=== PATIENT | male | born 1940 | race American Indian/Alaskan Native ===

== ENCOUNTER 2017-01-04 06:34 | Day surgery (SDC) | payer MEDICARE, MEDICAID ==
[~2017-01-04 06:34] MED LIST: Midazolam 1 MG/ML 2 ML SDV ONE; fentaNYL 100 MCG/2 ML SDV ONE
[2017-01-04] MEDS ORDERED: Midazolam 1 MG/ML 2 ML SDV IV ONE ×3 (06:35→07:31)
[2017-01-04] MEDS ORDERED: fentaNYL 100 MCG/2 ML SDV IV ONE ×2 (06:35→07:28)
[2017-01-04] MEDS ORDERED: Dextrose 5%-0.45% NaCl 1,000 ML IV SCH (07:00)
[2017-01-04] MEDS ORDERED: Sodium Chloride 0.9% 10 ML Syringe FLUSH PRN (07:00)
--- NOTE | 2017-01-04 08:25 | OR ---
DATE: 01/04/2017 PROCEDURES: Esophagogastroduodenoscopy, argon plasma coagulation therapy, and multiple pinch biopsies. INSTRUMENT USED: GIF-Q180 Olympus video panendoscope. PREMEDICATIONS: No oral topical anesthesia used. Fentanyl 100 mcg intravenous, Versed 1.5 mg intravenous. Nasal O2 canula. The procedure was done under pulse oximetry, BP recording, and cardiac monitoring. INDICATION: The patient with longstanding heartburn unexplained and not responsive to medical measures, on acid suppressants. DESCRIPTION OF PROCEDURE: Esophagogastroduodenoscopy is performed for detection of any active erosive lesions, Courtney esophagus, and malignancy also under consideration. H. pylori status to be determined, endoscopic hemostasis therapy if needed. The scope was passed with ease. Adequate visualization of the esophagus was made from proximal to distal areas. No upper esophageal lesions identified. No distal esophageal stricture. No uphill or downhill esophageal varices. No Laxmi-Mendoza tear. No evidence of erosive esophagitis by [place] criteria. No esophageal polyp or tumor mass identified. Small sliding hiatal hernia was noted. 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 No proximal gastric varices noted. Gastric fundus examination by retroflexion showed no polypoid lesions. No gastric ulcer, malignant mass, or vascular ectasia identified. There was some deformity near the prepyloric area. Multiple pinch biopsies were taken from the gastric antrum and proximal body and sent for PyloriTek test for H. pylori, and if negative in an hour, tissues to be sent for histopathology. Duodenal bulb showed small angiodysplastic area without bleeding from it. APC therapy was given. Visualized second part of the duodenum was unremarkable. Photographs were taken of the duodenal bulb before and after APC therapy. Photographs were also taken of the gastric antrum, fundus, and distal esophagus. No bleeding was noted from any of the visualized areas at the completion of examination. IMPRESSION: 1. Small sliding hiatal hernia. 2. Robert erosions. 3. Duodenal angiodysplasia. The patient tolerated the procedure well. [facility] /[id number]
[2017-01-04 09:26] VITALS: BP 140/63
== END 2017-01-04 09:40 | disposition home or self-care (01) ==
LOC: DL.ENDO 06:34
PROVIDERS: ATTEND Internal Medicine Gastroenterology
DX: K44.9 Diaphragmatic hernia without obstruction or gangrene (principal); K31.819 Angiodysplasia of stomach and duodenum without bleeding; K25.9 Gastric ulcer, unspecified as acute or chronic, without hemorrhage or perforation; E11.22 Type 2 diabetes mellitus with diabetic chronic kidney disease; I12.9 Hypertensive chronic kidney disease with stage 1 through stage 4 chronic kidney disease, or unspecified chronic kidney disease; N18.9 Chronic kidney disease, unspecified; E55.9 Vitamin D deficiency, unspecified; Z95.1 Presence of aortocoronary bypass graft; J44.9 Chronic obstructive pulmonary disease, unspecified; E78.5 Hyperlipidemia, unspecified; Z98.890 Other specified postprocedural states; F17.210 Nicotine dependence, cigarettes, uncomplicated; Z88.1 Allergy status to other antibiotic agents; Z88.8 Allergy status to other drugs, medicaments and biological substances
CPT/HCPCS: 43239; 87077; J7042; J2250; J3010

== ENCOUNTER 2017-05-10 06:18 | Day surgery (SDC) | payer MEDICARE, MEDICAID ==
[~2017-05-10 06:18] MED LIST changes: +Dextrose 5%-0.45% NaCl 1,000 ML IV SCH; +Sodium Chloride 0.9% 10 ML Syringe FLUSH PRN
[2017-05-10] MEDS ORDERED: fentaNYL 100 MCG/2 ML SDV IV ONE ×3 (06:19→07:30)
[2017-05-10] MEDS ORDERED: Midazolam 1 MG/ML 2 ML SDV IV ONE ×5 (06:19→07:38)
--- NOTE | 2017-05-10 08:19 | OR ---
DATE: 05/10/2017 PROCEDURE: Total colonoscopy and multiple cold snare polypectomies. INSTRUMENT USED: CF-H180AL Olympus video colonoscope. PREMEDICATIONS: Fentanyl 100 mcg intravenous, Versed 3 mg intravenous. Nasal O2 cannula. The procedure was done under pulse oximetry, BP recording, and monitoring analyst. INDICATION: Screening colonoscopic examination is done for detection of any polypoid lesions and removal, endoscopic hemostasis therapy if needed. DESCRIPTION OF PROCEDURE: Initial rectal exam was unremarkable. Rigid anoscopy was normal. The colonoscope was passed with ease. Few scattered diverticula were noted in the distal left colon along with some deformity. There was large amount of mostly liquid and some solid fecal material that had to be aspirated. The scope was passed with ease up to the ileocecal area, photographs were taken of the cecum showing multiple 3 mm sized benign-appearing polyps 3 in number. Photographs were taken, cold snare polypectomies were done, the tissues were retrieved and sent for histopathology. In the proximal ascending colon, another 3 mm sized benign-appearing polyp was noted, cold snare polypectomy was done, the tissue was retrieved and sent for histopathology. No bleeding was noted from any of the visualized areas at the commencement of the examination. No stricture. No vascular ectasia. No large isolated ulcerations seen. No evidence of diffuse inflammatory bowel disease in the form of friability, contact bleeding, or ulcerations. Probing the proximal sides of folds and flexures, using adequate distention and clearing up the stool material withdrawal of the scope was made, cecum to rectum time over 6 minutes. No bleeding was noted from any of the visualized areas at the completion of examination. IMPRESSION: 1. Colonic diverticulosis. 2. Multiple diminutive colonic polyps. The patient tolerated the procedure well. [facility] /[id number]
[2017-05-10 09:55] VITALS: BP 138/59
== END 2017-05-10 10:10 | disposition home or self-care (01) ==
LOC: DL.ENDO 06:18
PROVIDERS: ATTEND Internal Medicine Gastroenterology
DX: Z12.11 Encounter for screening for malignant neoplasm of colon (principal); D12.0 Benign neoplasm of cecum; D12.2 Benign neoplasm of ascending colon; K57.30 Diverticulosis of large intestine without perforation or abscess without bleeding; Z88.0 Allergy status to penicillin; Z88.1 Allergy status to other antibiotic agents; Z88.8 Allergy status to other drugs, medicaments and biological substances
CPT/HCPCS: 45385; 82962; J2250; J3010; J7042; 88305

== ENCOUNTER 2021-05-19 09:03 | Inpatient (IN) | payer MEDICARE, MEDICAID ==
[2021-05-19] MEDS ORDERED: Sodium Chloride 0.9% 10 ML Syringe FLUSH PRN (09:47)
[2021-05-19] MEDS ORDERED: Furosemide 40 MG/4 ML VIAL IV ONE (10:20)
[2021-05-19] MEDS ORDERED: Acetaminophen 325 MG Tab PO ONE (10:20)
[2021-05-19] MEDS ORDERED: Furosemide 40 MG/4 ML VIAL IVPUSH ONE ×3 (10:25→18:13)
[2021-05-19 10:51] LABS: CORONAVIRUS COVID-19 NAA NEGATIVE (NEGATIVE)
[2021-05-19] MEDS ORDERED: Sodium Polystyrene Sulfonate 15 GM/60 ML Susp 60 ML Bot PO ONE (11:14)
[2021-05-19 11:26] LABS: ANION GAP 9.8 mEq/L (7-13)
[2021-05-19] MEDS ORDERED: Ondansetron 4 MG/2 ML SDV IVPUSH PRN (14:22)
[2021-05-19] MEDS ORDERED: Azithromycin 500 MG in Sodium Chloride 0.9% 250 ML IV ONE (14:42)
[2021-05-19] MEDS ORDERED: cefTRIAXone 1 GM Vial IM SCH (15:00)
[2021-05-19] MEDS: Albuterol 0.021% 0.63 MG/3 ML Neb Soln NEB SCH ×2 (18:26)
[2021-05-19] MEDS: Budesonide 0.5 MG/2 ML Neb Susp NEB SCH (18:27)
[2021-05-19] MEDS: methylPREDNISolone Sodium Succinate 40 MG/1 ML SDV IVPUSH SCH ×2 (18:38→21:09)
[2021-05-19] MEDS: Pantoprazole 40 MG Tab.CR PO SCH (21:08)
[2021-05-19] MEDS: Levofloxacin/Dextrose 5%-Water 500 MG in Premix Bag 1 BAG IV SCH (21:09)
[2021-05-20] MEDS ORDERED: Glucagon,Human Recombinant 1 MG Vial IM PRN (00:20)
[2021-05-20] MEDS ORDERED: 50% Dextrose in Water 50 ML Syringe IVPUSH PRN (00:20)
[2021-05-20] MEDS: Carvedilol 25 MG Tab PO SCH ×3 (00:40→20:59)
[2021-05-20] MEDS: Albuterol 0.021% 0.63 MG/3 ML Neb Soln NEB SCH ×6 (00:40→18:18)
[2021-05-20] MEDS ORDERED: Furosemide 40 MG/4 ML VIAL IVPUSH ONE (02:18)
[2021-05-20] MEDS: methylPREDNISolone Sodium Succinate 40 MG/1 ML SDV IVPUSH SCH ×3 (05:17→21:04)
[2021-05-20 06:02] LABS: ANION GAP 19.4 mEq/L (7-13)
[2021-05-20] MEDS: Calcitriol 0.25 MCG Cap PO SCH (08:24)
[2021-05-20] MEDS: Clopidogrel 75 MG Tab PO SCH (08:25)
[2021-05-20] MEDS: Losartan 50 MG Tab PO SCH (08:25)
[2021-05-20] MEDS: Furosemide 100 MG/10 ML SDV IVPUSH SCH ×2 (08:30→15:11)
[2021-05-20] MEDS: Insulin Lispro 100 Units/ML 3 ML Vial SUBCUT SCH ×2 (08:40→17:23)
[2021-05-20] MEDS: Insulin Glarg,Human.Rec.Analog 100 Unit/ML SUBCUT SCH ×2 (08:42→21:09)
[2021-05-20] MEDS ORDERED: Chlorthalidone 25 MG Tab PO SCH (09:00)
[2021-05-20] MEDS ORDERED: Enoxaparin 30 MG/0.3 ML Syringe SUBCUT SCH (09:00)
[2021-05-20] MEDS ORDERED: Omeprazole 20 MG Cap.CR PO SCH (09:00)
[2021-05-20] MEDS: Budesonide 0.5 MG/2 ML Neb Susp NEB SCH ×2 (09:21→18:18)
[2021-05-20] MEDS ORDERED: Insulin Lispro 100 Units/ML 3 ML Vial SUBCUT SCH (12:00)
[2021-05-20] MEDS: Heparin Sodium 5,000 Units/ML Vial SUBCUT SCH ×2 (15:08→21:03)
[2021-05-20] MEDS: Pantoprazole 40 MG Tab.CR PO SCH (21:00)
[2021-05-20] MEDS: DULoxetine 30 MG Cap PO SCH (21:00)
[2021-05-20] MEDS: Gabapentin 300 MG Cap PO SCH (21:00)
[2021-05-20] MEDS: Pravastatin 20 MG Tab PO SCH (21:00)
[2021-05-20] MEDS: Tamsulosin 0.4 MG Cap.ER PO SCH (21:00)
[2021-05-20] MEDS: Acetaminophen 325 MG Tab PO PRN (21:08)
[2021-05-21] MEDS: Albuterol 0.021% 0.63 MG/3 ML Neb Soln NEB SCH ×6 (03:57→18:40)
[2021-05-21 05:51] LABS: ANION GAP 14.6 mEq/L (7-13)
[2021-05-21] MEDS: methylPREDNISolone Sodium Succinate 40 MG/1 ML SDV IVPUSH SCH ×2 (06:09→20:14)
[2021-05-21] MEDS: Heparin Sodium 5,000 Units/ML Vial SUBCUT SCH ×3 (06:09→23:50)
[2021-05-21] MEDS: Budesonide 0.5 MG/2 ML Neb Susp NEB SCH ×2 (08:08→18:40)
[2021-05-21] MEDS ORDERED: 50% Dextrose in Water 50 ML Syringe IVPUSH PRN (09:19)
[2021-05-21] MEDS: Insulin Lispro 100 Units/ML 3 ML Vial SUBCUT SCH ×4 (09:24→21:15)
[2021-05-21] MEDS: Carvedilol 25 MG Tab PO SCH ×2 (09:40→20:14)
[2021-05-21] MEDS: Clopidogrel 75 MG Tab PO SCH (09:40)
[2021-05-21] MEDS: Losartan 50 MG Tab PO SCH (09:41)
[2021-05-21] MEDS: Insulin Glarg,Human.Rec.Analog 100 Unit/ML SUBCUT SCH ×2 (09:43→21:16)
[2021-05-21] MEDS: Furosemide 100 MG/10 ML SDV IVPUSH SCH (09:54)
[2021-05-21] MEDS: Furosemide 40 MG Tab PO SCH (14:30)
[2021-05-21] MEDS: DULoxetine 30 MG Cap PO SCH (20:14)
[2021-05-21] MEDS: Levofloxacin/Dextrose 5%-Water 500 MG in Premix Bag 1 BAG IV SCH (20:14)
[2021-05-21] MEDS: Tamsulosin 0.4 MG Cap.ER PO SCH (20:15)
[2021-05-21] MEDS: Pravastatin 20 MG Tab PO SCH (20:15)
[2021-05-21] MEDS: Gabapentin 300 MG Cap PO SCH (20:15)
[2021-05-21] MEDS: Pantoprazole 40 MG Tab.CR PO SCH (20:15)
[2021-05-22] MEDS: Albuterol 0.021% 0.63 MG/3 ML Neb Soln NEB SCH ×4 (00:16→13:54)
[2021-05-22] MEDS: Heparin Sodium 5,000 Units/ML Vial SUBCUT SCH ×3 (06:06→21:19)
[2021-05-22] MEDS: Acetaminophen 325 MG Tab PO PRN ×2 (06:15→14:45)
[2021-05-22] MEDS: Budesonide 0.5 MG/2 ML Neb Susp NEB SCH ×2 (08:50→22:23)
[2021-05-22] MEDS: Furosemide 40 MG Tab PO SCH ×2 (09:15→14:45)
[2021-05-22] MEDS: Losartan 50 MG Tab PO SCH (09:15)
[2021-05-22] MEDS: Insulin Lispro 100 Units/ML 3 ML Vial SUBCUT SCH ×4 (09:15→21:25)
[2021-05-22] MEDS: Carvedilol 25 MG Tab PO SCH ×2 (09:15→21:24)
[2021-05-22] MEDS: Insulin Glarg,Human.Rec.Analog 100 Unit/ML SUBCUT SCH ×2 (09:15→21:26)
[2021-05-22] MEDS: Calcitriol 0.25 MCG Cap PO SCH (09:15)
[2021-05-22] MEDS: Clopidogrel 75 MG Tab PO SCH (09:15)
[2021-05-22] MEDS: Azithromycin 250 MG Tab PO SCH (09:15)
[2021-05-22] MEDS: methylPREDNISolone Sodium Succinate 40 MG/1 ML SDV IVPUSH SCH (09:51)
[2021-05-22] MEDS: Pravastatin 20 MG Tab PO SCH (21:17)
[2021-05-22] MEDS: Pantoprazole 40 MG Tab.CR PO SCH (21:17)
[2021-05-22] MEDS: Tamsulosin 0.4 MG Cap.ER PO SCH (21:18)
[2021-05-22] MEDS: Gabapentin 300 MG Cap PO SCH (21:18)
[2021-05-22] MEDS: DULoxetine 30 MG Cap PO SCH (21:18)
[2021-05-22] MEDS: Albuterol 0.083% 2.5 MG/3 ML Neb Soln INH SCH ×2 (22:22→22:23)
[2021-05-23] MEDS: Acetaminophen 325 MG Tab PO PRN ×2 (01:13→08:39)
[2021-05-23] MEDS: Heparin Sodium 5,000 Units/ML Vial SUBCUT SCH ×2 (05:57→13:18)
[2021-05-23] MEDS: Albuterol 0.083% 2.5 MG/3 ML Neb Soln INH SCH ×2 (07:37→13:24)
[2021-05-23] MEDS: Budesonide 0.5 MG/2 ML Neb Susp NEB SCH (07:37)
[2021-05-23] MEDS ORDERED: predniSONE 20 MG Tab PO SCH (08:00)
[2021-05-23] MEDS: Insulin Lispro 100 Units/ML 3 ML Vial SUBCUT SCH ×2 (08:08→12:24)
[2021-05-23] MEDS: Insulin Glarg,Human.Rec.Analog 100 Unit/ML SUBCUT SCH (08:35)
[2021-05-23] MEDS: Carvedilol 25 MG Tab PO SCH (08:38)
[2021-05-23] MEDS: Azithromycin 250 MG Tab PO SCH (08:38)
[2021-05-23] MEDS: Clopidogrel 75 MG Tab PO SCH (08:39)
[2021-05-23] MEDS: Losartan 50 MG Tab PO SCH (08:41)
[2021-05-23] MEDS: Furosemide 40 MG Tab PO SCH ×2 (08:42→13:18)
[2021-05-23 12:28] VITALS: BP 118/71; PULSE 77
[2021-06-03] MEDS ORDERED: Ergocalciferol (Vitamin D2) 1.25 MG Cap PO SCH (09:00)
== END 2021-05-23 16:15 | DRG 280 ==
LOC: DL.ED 09:03 → DL.MS 12:30
PROVIDERS: ADMIT Internal Medicine; ATTEND Internal Medicine
PROC: 30233N1 Transfusion of Nonautologous Red Blood Cells into Peripheral Vein, Percutaneous Approach (ICD-10-PCS; principal; 2021-05-19)
DX: I50.9 Heart failure, unspecified (principal); I13.0 Hypertensive heart and chronic kidney disease with heart failure and stage 1 through stage 4 chronic kidney disease, or unspecified chronic kidney disease; J96.01 Acute respiratory failure with hypoxia; I21.A1 Myocardial infarction type 2; N17.9 Acute kidney failure, unspecified; J44.1 Chronic obstructive pulmonary disease with (acute) exacerbation; D63.1 Anemia in chronic kidney disease; E64.9 Sequelae of unspecified nutritional deficiency; N18.30 Chronic kidney disease, stage 3 unspecified; R91.8 Other nonspecific abnormal finding of lung field; F17.210 Nicotine dependence, cigarettes, uncomplicated; E87.5 Hyperkalemia; E78.00 Pure hypercholesterolemia, unspecified; J44.9 Chronic obstructive pulmonary disease, unspecified; E11.42 Type 2 diabetes mellitus with diabetic polyneuropathy; I25.10 Atherosclerotic heart disease of native coronary artery without angina pectoris; H91.90 Unspecified hearing loss, unspecified ear; N18.9 Chronic kidney disease, unspecified; Z89.211 Acquired absence of right upper limb below elbow; Z98.49 Cataract extraction status, unspecified eye; E11.22 Type 2 diabetes mellitus with diabetic chronic kidney disease; E11.40 Type 2 diabetes mellitus with diabetic neuropathy, unspecified; F10.21 Alcohol dependence, in remission; Z85.038 Personal history of other malignant neoplasm of large intestine; Z95.1 Presence of aortocoronary bypass graft; Z88.1 Allergy status to other antibiotic agents; Z88.0 Allergy status to penicillin; Z88.5 Allergy status to narcotic agent; Z79.02 Long term (current) use of antithrombotics/antiplatelets; Z79.82 Long term (current) use of aspirin; Z79.4 Long term (current) use of insulin; Z79.899 Other long term (current) drug therapy; Z20.822 Contact with and (suspected) exposure to COVID-19
CPT/HCPCS: 0240U; 36415; 36430; 71045; 71250; 80048; 80053; 81001; 82272; 82947; 83735; 83880; 84100; 84484; 85025; 86850; 86900; 86901; 86920; 86922; 93005; 94640; 96374; 99285-25; A9270-GY; J1644; J1650; J1815-GY; J1940; J1956; J2920; J7512; J7613-GY; P9016; U0002

== ENCOUNTER 2021-06-15 05:15 | Day surgery (SDC) | payer MEDICARE, MEDICAID ==
[~2021-06-15 05:15] MED LIST changes: -Dextrose 5%-0.45% NaCl 1,000 ML IV SCH; -Midazolam 1 MG/ML 2 ML SDV ONE; -Sodium Chloride 0.9% 10 ML Syringe FLUSH PRN; +Sodium Chloride 0.9% 10 ML Syringe FLUSH SCH; -fentaNYL 100 MCG/2 ML SDV ONE
[2021-06-15] MEDS ORDERED: fentaNYL 100 MCG/2 ML SDV IV ONE ×3 (05:16→06:43)
[2021-06-15] MEDS ORDERED: Midazolam 1 MG/ML 2 ML SDV IV ONE ×2 (05:16→06:43)
[2021-06-15] MEDS ORDERED: Sodium Chloride 0.9% 10 ML Syringe FLUSH PRN (06:00)
[2021-06-15] MEDS ORDERED: Dextrose 5%-0.45% NaCl 1,000 ML IV SCH (06:00)
[2021-06-15] MEDS ORDERED: fentaNYL 100 MCG/2 ML SDV ONE (06:16)
[2021-06-15] MEDS ORDERED: Midazolam 1 MG/ML 2 ML SDV ONE (06:16)
[2021-06-15 09:02] VITALS: BP 139/91; PULSE 102
== END 2021-06-15 09:10 | disposition home or self-care (01) ==
LOC: DL.ENDO 05:15
PROVIDERS: ATTEND Internal Medicine Gastroenterology
DX: D50.9 Iron deficiency anemia, unspecified (principal); K44.9 Diaphragmatic hernia without obstruction or gangrene; I25.10 Atherosclerotic heart disease of native coronary artery without angina pectoris; I48.0 Paroxysmal atrial fibrillation; E11.22 Type 2 diabetes mellitus with diabetic chronic kidney disease; I12.9 Hypertensive chronic kidney disease with stage 1 through stage 4 chronic kidney disease, or unspecified chronic kidney disease; D63.1 Anemia in chronic kidney disease; N18.9 Chronic kidney disease, unspecified; E11.42 Type 2 diabetes mellitus with diabetic polyneuropathy; K25.4 Chronic or unspecified gastric ulcer with hemorrhage; H91.90 Unspecified hearing loss, unspecified ear; E78.5 Hyperlipidemia, unspecified; E55.9 Vitamin D deficiency, unspecified; N40.0 Benign prostatic hyperplasia without lower urinary tract symptoms; M19.90 Unspecified osteoarthritis, unspecified site; Z88.1 Allergy status to other antibiotic agents; Z88.5 Allergy status to narcotic agent; Z01.812 Encounter for preprocedural laboratory examination; Z20.822 Contact with and (suspected) exposure to COVID-19; Z89.211 Acquired absence of right upper limb below elbow; Z95.1 Presence of aortocoronary bypass graft; Z86.19 Personal history of other infectious and parasitic diseases; Z87.828 Personal history of other (healed) physical injury and trauma; Z86.010 Personal history of colon polyps; Z79.4 Long term (current) use of insulin; Z79.82 Long term (current) use of aspirin; Z79.02 Long term (current) use of antithrombotics/antiplatelets; Z79.899 Other long term (current) drug therapy
CPT/HCPCS: 43235; J2250; J3010; J7042; U0002

== ENCOUNTER 2021-06-25 12:12 | Emergency (ER) | payer MEDICARE, MEDICAID ==
[2021-06-25 13:23] VITALS: BP 146/90; PULSE 95
[2021-06-25 14:15] LABS: ANION GAP 13.2 mEq/L (7-13); CHLORIDE,CL 103 mmol/L (98-107); SODIUM,NA 139 mmol/L (136-145)
[2021-06-25 14:36] LABS: CORONAVIRUS COVID-19 NAA NEGATIVE (NEGATIVE)
== END 2021-06-25 17:35 ==
LOC: DL.ED 12:12
DX: M84.451A Pathological fracture, right femur, initial encounter for fracture (principal); J44.9 Chronic obstructive pulmonary disease, unspecified; M89.9 Disorder of bone, unspecified; E11.40 Type 2 diabetes mellitus with diabetic neuropathy, unspecified; E11.22 Type 2 diabetes mellitus with diabetic chronic kidney disease; I12.9 Hypertensive chronic kidney disease with stage 1 through stage 4 chronic kidney disease, or unspecified chronic kidney disease; N18.9 Chronic kidney disease, unspecified; I50.9 Heart failure, unspecified; D63.1 Anemia in chronic kidney disease; Z20.822 Contact with and (suspected) exposure to COVID-19; Z88.5 Allergy status to narcotic agent; Z88.1 Allergy status to other antibiotic agents; Z88.0 Allergy status to penicillin
CPT/HCPCS: 0240U; 36415; 71045; 72192; 73502; 80053; 83605; 83615; 83880; 85025; 86140; 87040; 99285